=== PATIENT | female | born 1940 | race Caucasian/White ===

== ENCOUNTER 2017-08-17 12:05 | Outpatient (CLI) | payer MEDICARE, OTHER | END 2017-08-17 12:06 | disposition home or self-care (01) | LOC: BICRAD 12:05 | PROVIDERS: ATTEND Internal Medicine Medical Oncology | DX: C90.00 Multiple myeloma not having achieved remission (principal); G93.89 Other specified disorders of brain | CPT/HCPCS: 70250; 77073 ==

== ENCOUNTER 2018-05-03 14:09 | Outpatient (CLI) | payer MEDICARE, OTHER | END 2018-05-03 14:10 | disposition home or self-care (01) | LOC: BICMAMMO 14:09 | PROVIDERS: ATTEND Internal Medicine | DX: Z12.31 Encounter for screening mammogram for malignant neoplasm of breast (principal); R92.1 Mammographic calcification found on diagnostic imaging of breast; Z85.820 Personal history of malignant melanoma of skin | CPT/HCPCS: 77063; 77067 ==

== ENCOUNTER 2018-05-29 10:39 | Outpatient (CLI) | payer MEDICARE, OTHER ==
--- NOTE | 2018-05-29 12:34 | RAD ---
LUMBAR SPINE TWO VIEWS: Date: 05-29-18 Comparison: None. History: Malignant neoplasm of bone/bone marrow. FINDINGS: There are prominent degenerative changes associated with the lumbar spine, including multilevel lower lumbar spine facet hypertrophy as well as multilevel disc space narrowing and anterior osteophyte fo rmation at the thoracolumbar junction as well as at the L3-4 level. There is prominent disc space narrowing with degenerative endplate change and osteophyte formation as L4-5. No significant anterolisthesis or retrolisthesis. No acute fracture or obvious bone lesion. IMPRESSION: 1. Multilevel degenerative change within the lumbar spine as detailed above. POS: [facility]
--- NOTE | 2018-05-29 13:05 | RAD ---
FOUR VIEWS OF THE SKULL: DATE: 05/29/2018. COMPARISON: Comparison is 03/16/2017. HISTORY: Multiple myeloma, assess for calvarial lytic lesions. FINDINGS: Multiple subcentimeter lytic lesions are noted within the calvarium and the parietal and occipital re gions, right greater than left, measuring up to 1.1 cm to the right of midline on image 4 of 4. No s ignificant interval change is apparent. No acute osseous abnormality. IMPRESSION: Findings suggesting stable bilateral calvarial lesions, consistent with the provided history of multi ple myeloma. POS: [facility]
== END 2018-05-29 10:40 | disposition home or self-care (01) ==
LOC: BICRAD 10:39
PROVIDERS: ATTEND Internal Medicine Medical Oncology
DX: M89.9 Disorder of bone, unspecified (principal); C79.51 Secondary malignant neoplasm of bone; M47.816 Spondylosis without myelopathy or radiculopathy, lumbar region
CPT/HCPCS: 70260; 72100

== ENCOUNTER 2019-05-16 15:58 | Outpatient (CLI) | payer MEDICARE, OTHER ==
--- NOTE | 2019-05-16 16:44 | MMO ---
Bilateral MAMMO Bilat Screen [facility]. CLINICAL HISTORY: Patient is 79 years old and is seen for screening. The patient has no family history of breast cancer. VIEWS: The views performed were: bilateral craniocaudal with tomosynthesis and bilateral mediolateral oblique with tomosynthesis. FILMS COMPARED: The present examination has been compared to prior imaging studies performed at [facility] on 02/04/2016, 03/16/2017 and 05/03/2018, and at [facility] on 04/12/2014. This study has been interpreted with the assistance of computer-aided detection. MAMMOGRAM FINDINGS: There are scattered fibroglandular densities. Benign calcifications are noted bilaterally. There are no suspicious masses, suspicious calcifications, or new areas of architectural distortion. IMPRESSION: THERE IS NO MAMMOGRAPHIC EVIDENCE OF MALIGNANCY. A ROUTINE FOLLOW-UP MAMMOGRAM IN 1 YEAR IS RECOMMENDED. THE RESULTS OF THIS EXAM WERE SENT TO THE PATIENT. ACR BI-RADS Category 2 - Benign finding MAMMOGRAPHY NOTE: 1. A negative mammogram report should not delay a biopsy if a dominant of clinically suspicious mass is present. 2. Approximately 10% to 15% of breast cancers are not detected by mammography. 3. Adenosis and dense breasts may obscure an underlying neoplasm. Reported by: PEREZ BOX MD Electonically Signed: [id number]
== END 2019-05-16 15:59 | disposition home or self-care (01) ==
LOC: BICMAMMO 15:58
PROVIDERS: ATTEND Internal Medicine
DX: Z12.31 Encounter for screening mammogram for malignant neoplasm of breast (principal)
CPT/HCPCS: 77063; 77067

== ENCOUNTER 2019-12-06 10:57 | Outpatient (CLI) | payer MEDICARE, OTHER ==
--- NOTE | 2019-12-06 13:59 | RAD ---
SKULL SERIES 4 VIEWS: HISTORY: Multiple myeloma. Assess lytic lesions. COMPARISON: Comparison is made to skull films dated 05/29/2018. FINDINGS: There are scattered lucent lesions seen in the skull. These are stable when compared to 05/29/2018. There are no new lucent or lytic lesions. Prominent hyperostosis frontalis again noted. IMPRESSION: Scattered lucent skull lesions are stable from 05/29/2018. POS: [facility]
--- NOTE | 2019-12-06 14:26 | RAD ---
LUMBAR SPINE TWO VIEWS: 12/06/19 COMPARISON: 05/29/18. HISTORY: Lytic lesions. FINDINGS: On this examination, no discrete lytic lesions are noted within the lumbar spine. Of note, radiograph s may be difficult to evaluate subtle/small lytic osseous lesions, especially given the degree of sup erimposed prominent degenerative change within the lumbar spine. There is prominent lateral osteophyt e formation bilaterally at L1-2 and L2-3. There is also prominent right lateral osteophyte formation at L3-4 and left lateral osteophyte formation at L4-5. There is prominent lower lumbar spine facet hy pertrophy. Multilevel disc space narrowing and degenerative end plate change with anterior osteophyte formation noted at T12-L1 through L3-4. No acute fracture. IMPRESSION: Prominent degenerative change. No obvious lytic lesion although assessment is limited on radiographs. CT examination would be the study of choice to evaluate for underlying lytic lesions. POS: [facility]
== END 2019-12-06 10:58 | disposition home or self-care (01) ==
LOC: BICRAD 10:57
PROVIDERS: ATTEND Internal Medicine Medical Oncology
DX: M89.8X9 Other specified disorders of bone, unspecified site (principal); C79.51 Secondary malignant neoplasm of bone; M47.816 Spondylosis without myelopathy or radiculopathy, lumbar region
CPT/HCPCS: 70260; 72100

== ENCOUNTER 2020-10-20 09:27 | Outpatient (CLI) | payer MEDICARE, OTHER | END 2020-10-20 09:28 | disposition home or self-care (01) | LOC: BICMAMMO 09:27 | PROVIDERS: ATTEND Internal Medicine Medical Oncology | DX: Z12.31 Encounter for screening mammogram for malignant neoplasm of breast (principal) | CPT/HCPCS: 77063; 77067 ==

== ENCOUNTER 2020-11-27 10:28 | Outpatient (CLI) | payer MEDICARE, OTHER | END 2020-11-27 10:29 | disposition home or self-care (01) | LOC: BICRAD 10:28 | PROVIDERS: ATTEND Internal Medicine Medical Oncology | DX: M89.9 Disorder of bone, unspecified (principal) | CPT/HCPCS: 70260 ==

== ENCOUNTER 2020-12-17 14:00 | Outpatient (CLI) | payer MEDICARE, OTHER ==
[2020-12-17 15:48] LABS: Bilirubin Neg (Negative); Blood, Urine 10 (Negative); Clarity Clear (Clear); Glucose, Urine (Dipstick) Normal (Negative); Ketone, Urine Negative (Negative); Leukocyte Negative (Negative); Nitrite Negative (Negative); Protein, Urine (Dipstick) Negative (Neg-Trace); Urobilinogen Normal mg/dL (Less than 2)
[2020-12-17 15:52] LABS: #Eosinphils 0.1 10x3/uL (0.0-0.5); #Monocytes 0.4 10x3/uL (0.0-1.1); #Neutrophils 3.5 10x3/uL (1.5-8.4); %Basophils 0.3 % (0.0-2.0); %Eosinophils 0.8 % (0.0-6.0); %Lymphocytes 33.2 % (18.0-47.0); %Monocytes 7.3 % (0.0-10.0); %Neutrophils 57.7 % (40.0-75.0); Hemoglobin 12.7 g/dL (12.0-15.5); Mean Corpuscular HGB CONC 33.5 g/dL (32.0-36.0); Mean Corpuscular Hemoglobin 28.8 pg (27.0-33.0); Mean Corpuscular Volume 85.9 fl (81.6-98.3); Mean Platelet Volume 9.8 fl (7.4-10.4); Platelet Count 219 10x3/uL (150-450); RBC Distribution Width 15.5 % (11.5-14.5); Red Blood Cell (RBC) Count 4.41 10x6/uL (3.90-5.03)
[2020-12-17 16:13] LABS: Bacteria/HPF 1+ HPF (None Seen); RBC/HPF None Seen HPF (0-3); Squamous Epithelial 0-3 HPF (0-3); WBC/HPF None Seen HPF (0-3)
== END 2020-12-17 14:01 | disposition home or self-care (01) ==
LOC: LABBT 14:00
PROVIDERS: ATTEND Orthopaedic Surgery Hand Surgery
DX: Z01.818 Encounter for other preprocedural examination (principal); G56.01 Carpal tunnel syndrome, right upper limb
CPT/HCPCS: 81001; 85025; 93005; 93010

== ENCOUNTER 2020-12-22 13:03 | Day surgery (SDC) | payer MEDICARE, OTHER ==
[2020-12-19 10:37] VITALS: BMI 36.3
[2020-12-22] MEDS ORDERED: Fentanyl 100 MCG/2 ML VIAL ONE (17:08)
[2020-12-22] MEDS ORDERED: Betamet Acet/Betamet Na Ph 30 MG/5 ML VIAL ONE (17:10)
[2020-12-22] MEDS ORDERED: Neomycin-Polymyxin 1 ML AMP ONE (17:10)
[2020-12-22] MEDS ORDERED: Bacitracin Zinc Ointment 30 gm TUBE ONE (17:10)
[2020-12-22] MEDS ORDERED: Bupivacaine PF 0.5% 30 ML VIAL ONE (17:10)
[2020-12-22] MEDS ORDERED: Dexamethasone 20 MG/5 ML VIAL ONE (17:33)
[2020-12-22] MEDS ORDERED: PROPOFOL 200 MG/20 ML VIAL ONE (17:33)
[2020-12-22] MEDS ORDERED: Ondansetron PF 4 MG/2 ML Vial ONE (17:33)
[2020-12-22] MEDS ORDERED: PROPOFOL 20 ML ONE (18:12)
[2020-12-22] MEDS ORDERED: Ketorolac Tromethamine 30 MG/ML VIAL ONE (19:06)
== END 2020-12-22 19:55 | disposition home or self-care (01) ==
LOC: SDC 13:03
PROVIDERS: ATTEND Orthopaedic Surgery Hand Surgery
PROC: 01N50ZZ Release Median Nerve, Open Approach (ICD-10-PCS; principal; 2020-12-22)
DX: G56.01 Carpal tunnel syndrome, right upper limb (principal); E89.0 Postprocedural hypothyroidism; Z79.899 Other long term (current) drug therapy; Z88.5 Allergy status to narcotic agent
CPT/HCPCS: J0690; J0702; J1100; J1885; J2405; J2704; J3010; S0020

== ENCOUNTER 2021-12-25 10:40 | Outpatient (CLI) | payer MEDICARE, OTHER | END 2021-12-25 10:41 | disposition home or self-care (01) | LOC: RAD 10:40 | PROVIDERS: ATTEND Physician Assistant Medical | DX: K21.00 Gastro-esophageal reflux disease with esophagitis, without bleeding (principal); R13.10 Dysphagia, unspecified; K44.9 Diaphragmatic hernia without obstruction or gangrene | CPT/HCPCS: 74220 ==

== ENCOUNTER 2022-05-30 11:13 | Emergency (ER) | payer MEDICARE, OTHER ==
[2022-05-30] MEDS ORDERED: FENTANYL 50 MCG/ML 1 ML VIAL ONE (11:16)
[2022-05-30] MEDS ORDERED: levETIRAcetam 500 MG/5 ML VIAL ONE (11:17)
[2022-05-30] MEDS ORDERED: Rocuronium Bromide 10 MG/ML (10ML VIAL) ONE (11:18)
[2022-05-30] MEDS ORDERED: Propofol 1,000 MG/100 ML VIAL IV ONE ×2 (11:22→14:27)
[2022-05-30 11:38] LABS: #Basophils 0.2 thou/uL (0.0-0.2); #Eosinphils 0.1 thou/uL (0.0-0.7); #Lymphocytes 5.7 thou/uL (1.20-3.40); #Monocytes 0.8 thou/uL (0.11-0.59); #Neutrophils 4.8 thou/uL (1.40-6.50); %Eosinophils 0.6 % (0.0-10.0); %Lymphocytes 49.4 % (21.0-51.0); %Monocytes 6.6 % (0.0-10.0); %Neutrophils 41.5 % (42.0-75.0); Hemoglobin 15.3 g/dL (12.0-16.0); Mean Corpuscular HGB CONC 31.8 g/dL (32.0-36.0); Mean Corpuscular Hemoglobin 29.8 pg (27.0-31.0); Mean Corpuscular Volume 93.6 fl (78.0-98.0); Mean Platelet Volume 7.8 fL (7.4-10.4); Platelet Count 242 10x3/uL (130-400); RBC Distribution Width 14.4 % (11.5-14.5); Red Blood Cell (RBC) Count 5.12 mill/uL (4.20-5.40); White Blood Cell (WBC) Count 11.6 10x3/uL (4.8-10.8)
[2022-05-30 11:51] LABS: PTT 26.4 sec (22.9-36.1); Prothrombin Time 13.6 sec (12.0-14.7)
[2022-05-30 11:53] LABS: ALT (SGPT) 14 U/L (8-55); AST (SGOT) 20 U/L (5-34); Albumin 4.2 g/dL (3.4-4.8); Alkaline Phosphatase 79 U/L (40-110); Anion Gap 23 mmol/L (10-20); BUN (Urea Nitrogen) 8 mg/dL (9.8-20.1); Bilirubin, Total 0.7 mg/dL (0.2-1.2); CK (CPK) 45 U/L (29-168); Calc. Creatinine Clearance 0 mL/min (70-130); Calcium 9.9 mg/dL (7.8-10.44); Carbon Dioxide 17 mmol/L (23-31); Chloride 104 mmol/L (98-107); Estimated GFR 74; Globulin 4.5 g/dL (2.4-3.5); Glucose 129 mg/dL (83-110); Lipase 23 U/L (8-78); Potassium 3.1 mmol/L (3.5-5.1); Protein, Total 8.7 g/dL (5.8-8.1); Sodium 141 mmol/L (136-145)
[2022-05-30 11:53] LABS: Analyzer IN Cardio ER; Base Excess (BEa) -6.2 mEq/L (-2.0 to +3.0); CO2 Tension 27.3 mmHg (35.0-45.0); Carboxyhemoglobin (COHb) 0.3 gm% (0.0-3.0); Hemoglobin (Hb) 12.7 g/dL (12.0-16.0); O2 Tension (PaO2), arterial 206.9 mmHg (> 60.0); pH, Arterial 7.41 (7.35-7.45)
[2022-05-30] MEDS ORDERED: niCARdipine 25 MG/10 ML VIAL ONE (12:12)
[2022-05-30 12:14] LABS: ALV-art Gradient 186.775 mmHg (0-20); Potassium - ABG Lab 2.56 mmol/L (3.70-5.30); Puncture Site RRA
[2022-05-30 13:11] LABS: Bilirubin Negative (Negative); Blood, Urine Negative (Negative); Clarity Clear (Clear); Glucose, Urine (Dipstick) Normal (Negative); Ketone, Urine 10 mg/dL (Negative); Leukocyte 250 Leu/uL (Negative); Nitrite Negative (Negative); Protein, Urine (Dipstick) 30 mg/dL (Neg-Trace); Specific Gravity, Urine 1.011 (1.002-1.036); Urobilinogen Normal mg/dL (Less than 2); pH, Urine 6.5 (5.0-9.0)
[2022-05-30 13:29] LABS: Bacteria/HPF 2+ HPF (None Seen); RBC/HPF None Seen HPF (0-3); Squamous Epithelial 0-3 HPF (0-3)
[2022-05-30 14:22] LABS: SARS-CoV-2 NAA Rapid Test Not Detected (NotDetected)
[2022-05-30 15:01] LABS: Lactic Acid 1.9 mmol/L (0.5-2.2)
== END 2022-05-30 14:49 | disposition short-term general hospital (02) ==
LOC: ERS 11:13
DX: G40.911 Epilepsy, unspecified, intractable, with status epilepticus (principal); J96.90 Respiratory failure, unspecified, unspecified whether with hypoxia or hypercapnia; J69.0 Pneumonitis due to inhalation of food and vomit; I16.0 Hypertensive urgency; I10 Essential (primary) hypertension; E03.9 Hypothyroidism, unspecified; E78.5 Hyperlipidemia, unspecified; Z20.822 Contact with and (suspected) exposure to COVID-19
CPT/HCPCS: 0240U; 36600; 70450; 71045; 81001; 82140; 82550; 82805; 83605; 83690; 83880; 84146; 84484; 85610; 85730; 87040; 87077; 87086; 87186; 93005; 94002; J1953; J3010; 31500; 36415; 36556; 51702; 80053; 84443; 85025; 96365; 96375; 99292; J1956; J2704